=== PATIENT | female | born 1995 | race Caucasian/White ===

== ENCOUNTER 2017-06-29 16:19 | Emergency (ER) | payer OTHER ==
[2017-06-29 16:26] VITALS: BP 130/85; PULSE 87; RESP 18; TEMP 98.2
--- NOTE | 2017-06-29 17:02 | ED ---
General Adult HPI - General Chief complaint: Extremity Problem,Nontraumatic Stated complaint: swollen left calf Time Seen by Provider: 06/29/17 16:32 Source: patient, RN notes reviewed Mode of arrival: ambulatory Limitations: no limitations - History of Present Illness Initial comments: Patient is a pleasant 22-year-old female presenting to the emergency department with left calf discomfort. Patient has had intermittent symptoms for several weeks. Patient states discomfort has been more persistent for the past couple of days. Discomfort is left lateral upper calf. Discomfort increases with movement and touch. No redness. No fevers. 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 - Related Data Allergies Allergy/AdvReac Type Severity Reaction Status Date / Time No Known Allergies Allergy Verified 06/29/17 16:26 Review of Systems ROS Statement: Those systems with pertinent positive or pertinent negative responses have been documented in the HPI. ROS Other: All systems not noted in ROS Statement are negative. Constitutional: Denies: fever Eyes: Denies: eye pain ENT: Denies: ear pain Respiratory: Denies: cough Cardiovascular: Denies: chest pain Endocrine: Denies: fatigue Gastrointestinal: Denies: abdominal pain Genitourinary: Denies: dysuria Musculoskeletal: Denies: back pain Skin: Denies: rash Neurological: Denies: weakness Past Medical History Additional Past Medical History / Comment(s): gastritis, scoliosis History of Any Multi-Drug Resistant Organisms: None Reported Past Surgical History: No Surgical Hx Reported Past Psychological History: Anxiety, Bipolar, Depression Smoking Status: Current every day smoker Past Alcohol Use History: Occasional Past Drug Use History: None Reported, Marijuana, Methamphetamine, Prescription Drug Abuse General Exam Limitations: no limitations General appearance: alert, in no apparent distress Head exam: Present: atraumatic Respiratory exam: Present: normal lung sounds bilaterally Cardiovascular Exam: Present: regular rate, normal rhythm GI/Abdominal exam: Present: soft. Absent: tenderness Extremities exam: Present: calf tenderness (Mild to moderate tenderness left lateral upper calf. No erythema. No warmth.), other (Distally the extremity is neurovascularly intact.) Neurological exam: Present: alert Psychiatric exam: Present: normal affect, normal mood Skin exam: Present: normal color Course Vital Signs 06/29/17 16:22 Temperature 98.2 F Pulse Rate 87 Respiratory 18 Rate Blood Pressure 130/85 O2 Sat by Pulse 100 Oximetry Medical Decision Making - Medical Decision Making Patient reevaluated and updated. - Radiology Data Radiology results: report reviewed (Left leg ultrasound negative for DVT. No other acute finding.) Disposition Clinical Impression: Pain of left calf Disposition: HOME SELF-CARE Condition: Stable Instructions: Muscle Strain (ED), Leg Cramps (ED) Additional Instructions: Please follow-up with primary care physician in the next day or 2 for recheck. Return to [place] today. Return for increased pain, redness, warmth, swelling, fevers, worsening symptoms or other concerns. Is patient prescribed a controlled substance at d/c from ED?: No Referrals: Pierce Duarte MD [STAFF PHYSICIAN] - 1-2 days Time of Disposition: 17:57
--- NOTE | 2017-06-29 17:27 | US ---
EXAMINATION TYPE: US venous doppler duplex LE LT DATE OF EXAM: 06/29/2017 4:44 PM COMPARISON: NONE CLINICAL HISTORY: 22-year-old female Pain. Left calf pain intermittently x 4 months and now severe SIDE PERFORMED: Left TECHNIQUE: The lower extremity deep venous system is examined utilizing real time linear array sonog ana maria with graded compression, doppler sonography and color-flow sonography. FINDINGS: VESSELS IMAGED: Common Femoral Vein Deep Femoral Vein Greater Saphenous Vein * Femoral Vein Popliteal Vein Small Saphenous Vein * Proximal Calf Veins Posterior tibial veins (* superficial vessels) Left Leg: Negative for DVT Additional targeted scanning along the posterior calf midline at the site of patient's pain shows nor mal echotexture of the underlying musculature. IMPRESSION: 1. No evidence for DVT within the left lower extremity. 2. Targeted scanning of the mid left calf at the site of patient's pain shows no discrete sonographic abnormality of the superficial tissues.
== END 2017-06-29 18:20 | disposition home or self-care (01) ==
LOC: EC 16:19
DX: M79.605 Pain in left leg (principal); F17.200 Nicotine dependence, unspecified, uncomplicated
CPT/HCPCS: 99283